=== PATIENT | male | born 1975 | race Two or more races ===

== ENCOUNTER 2025-03-09 21:22 | Emergency (ER) | payer BC, OTHER ==
[~2025-03-09] VITALS: Ht 177.8 cm; Wt 99.1 kg
[2025-03-10 00:16] VITALS: BP 131/84; TEMP 97.5
[2025-03-10 00:20] VITALS: PULSE 75; RESP 18; O2SAT 98
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
[2025-03-10] MEDS ORDERED: NABU-74 PO (01:48)
[2025-03-10] MEDS ORDERED: TIZA-142 PO (01:48)
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
== END 2025-03-10 01:57 | disposition home or self-care (01) ==
LOC: ER 21:22
DX: S13.4XXA Sprain of ligaments of cervical spine, initial encounter (principal); G44.309 Post-traumatic headache, unspecified, not intractable; Z79.899 Other long term (current) drug therapy; V89.2XXA Person injured in unspecified motor-vehicle accident, traffic, initial encounter; Y93.89 Activity, other specified; Y92.488 Other paved roadways as the place of occurrence of the external cause; Y99.8 Other external cause status
CPT/HCPCS: 72040